=== PATIENT | male | born 1935 | race Caucasian/White ===

== ENCOUNTER 2017-08-16 11:38 | Outpatient (CLI) | payer OTHER ==
--- NOTE | 2017-08-16 14:23 | RAD ---
THREE VIEWS LUMBAR SPINE: 08/16/2017 HISTORY: Acute midline low back pain without history of trauma. COMPARISON: None available. FINDINGS: There are five [id number] lumbar type vertebral bodies. Multilevel osteophytes are present. Th ere is narrowing of the L2-L3, L4-L5, and L5-S1 intervertebral disk spaces, with vacuum phenomenon in tervertebral disks at this level, related to the degenerative changes. Endplate degenerative changes are present. Vertebral body heights are within normal limits. There is trace grade 1 anterolisthes is of L3 on L4. Prominent facet hypertrophic changes are present at this level. Degenerative change is seen in the lower thoracic spine. Vascular calcifications are seen in the abdominal aorta and involving the iliac arteries. Phlebolith s overly the pelvis. IMPRESSION: 1. Multilevel degenerative changes in the lumbar spine with trace grade 1 anterolisthesis of L3 on L 4. 2. No acute fracture is seen. POS: [facility]
== END 2017-08-16 11:39 | disposition home or self-care (01) ==
LOC: MADRAD 11:38
PROVIDERS: ATTEND Family Medicine
DX: M54.5 Low back pain (principal); M47.896 Other spondylosis, lumbar region; M43.16 Spondylolisthesis, lumbar region
CPT/HCPCS: 72100